=== PATIENT | female | born 1945 | race Caucasian/White ===

== ENCOUNTER 2019-08-15 14:31 | Inpatient (IN) | payer MEDICARE, BC ==
[~2019-08-15] VITALS: Ht 165.1 cm; Wt 59.0 kg
[2019-08-15 18:14] VITALS: BP 163/71; BMI 21.6
--- NOTE | 2019-08-15 18:57 | NUR ---
ADMIT TO FLOOR FROM [facility]. SOB AT REST. OXYGEN 3LNC. COUGHS WITH SWALLOWING.
[2019-08-15 19:30] VITALS: BP 131/76
--- NOTE | 2019-08-15 19:30 | NUR ---
PT IS RESTING IN BED WITH EYES OPEN. ALERT AND ORIENTED X 3. DENIES ACUTE PAIN OR DISCOMFORT AT THIS TIME. NO NEEDS VOICED. O2 IS ON @ 3LPM PER NC. NO SOB NOTED. SR'S ARE UP X 2 IN BED. CALL LIGHT AND BEDSIDE TABLE ARE WITHIN EASY REACH.
--- NOTE | 2019-08-15 22:30 | NUR ---
PT IS RESTING IN BED WITH EYES CLOSED. NO DISTRESS NOTED.
--- NOTE | 2019-08-16 01:41 | NUR ---
I have reviewed this patient and I concur with the Shift Assessment completed by the Licensed Practical Nurse today this shift.
--- NOTE | 2019-08-16 04:24 | NUR ---
PT LYING IN BED EYES CLOSED RESTING QUIETLY. RR EVEN AND UNLABORED. CL IN REACH
[2019-08-16 07:39] LABS: BASOPHILS 0 % (0-2); EOSINOPHILS 0.3 % (0-7); HEMATOCRIT 37.4 % (36.0-48.0); HEMOGLOBIN 12.1 g/dL (12-16); IMMATURE GRANULOCYTES 0.5 % (0-5); LYMPHOCYTES 35.8 % (15-50); MCH 31.8 pg (26.0-34.0); MCHC 32.4 g/dL (31.0-37.0); MCV 98.2 fL (80.0-100.0); MONOCYTES 8.9 % (2-11); NEUTROPHILS 54.5 % (40-80); PLATELET COUNT 250 10x3/uL (130-400); RBC 3.81 10x6/uL (4.00-5.40); RDW 12.3 % (11.5-14.5); WBC 6.4 10x3/uL (4.8-10.8)
[2019-08-16 07:49] LABS: ANION GAP 9.7 mmol/L (8-16); CALCIUM 8.7 mg/dL (8.5-10.1); POTASSIUM - SERUM 3.7 mmol/L (3.5-5.1)
[2019-08-16 08:00] VITALS: BP 124/80
[2019-08-16 12:31] VITALS: Ht 165.1 cm; Wt 59.0 kg
--- NOTE | 2019-08-16 12:37 | NUR ---
SITTING UP IN BED EATING LUNCH. STILL WEARING OXYGEN AND DENIES NEEDS. CALL LIGHT IN REACH
--- NOTE | 2019-08-16 16:53 | NUR ---
RESTING QUIETLY IN BED. EYES CLOSED. NO S/S DISTRES. WEARING OXYGEN. CALL LIGHT IN REACH
--- NOTE | 2019-08-16 19:52 | NUR ---
PT IS RESTING IN BED WITH EYES OPEN. ALERT AND ORIENTED X 3. DENIES ACUTE PAIN OR DISCOMFORT AT THIS TIME. NO NEEDS VOICED. O2 IS ON @3 LPM PER NC. NO SOB NOTED. SR'S ARE UP X2 IN BED. CALL LIGHT AND BEDSIDE TABLE ARE WITHIN EASY REACH.
[2019-08-16 20:10] VITALS: BP 131/82
--- NOTE | 2019-08-16 21:34 | NUR ---
PT RESTING IN BED WATCHING TV. NO NEEDS VOICED.
--- NOTE | 2019-08-17 01:14 | NUR ---
I have reviewed this patient and I concur with the Shift Assessment completed by the Licensed Practical Nurse today this shift.
--- NOTE | 2019-08-17 04:30 | NUR ---
PT RESTING IN BED WITH EYES CLOSED. NO ACUTE DISTRESS NOTED.
[2019-08-17] MEDS ORDERED: IPRAT-ALBUT 0.5-3 ML UPD (06:14)
[2019-08-17] MEDS ORDERED: COZAAR50 MG PO (06:15)
[2019-08-17] MEDS ORDERED: LOVASTATIN20 MG PO (06:16)
[2019-08-17] MEDS ORDERED: MECLIZINE HCL25 MG PO (06:17)
[2019-08-17] MEDS ORDERED: METOPROLOL TART25 MG PO (06:18)
[2019-08-17] MEDS ORDERED: ACETAMINOPHEN325 MG PO (06:19)
[2019-08-17] MEDS ORDERED: FAMOTIDINE10 MG PO (06:20)
[2019-08-17] MEDS ORDERED: DULERA 200 MCG8.8 GM INH (06:23)
[2019-08-17] MEDS ORDERED: GUAIFENESI100 MG/5 M PO (06:23)
[2019-08-17] MEDS ORDERED: PREDNISONE20 MG PO (06:24)
[2019-08-17] MEDS ORDERED: ASCORBIC ACID500 MG PO (06:25)
[2019-08-17] MEDS ORDERED: LOW DOSE ASPIRI81 M1 PO (06:26)
[2019-08-17] MEDS ORDERED: OS-CAL500 MG PO (06:28)
[2019-08-17 08:00] VITALS: BP 126/54
--- NOTE | 2019-08-17 08:00 | NUR ---
PATIENT IS ALERT/ORIENT. CALL LIGHT WITHIN REACH. WILL CONTINUE WITH PLAN OF CARE
--- NOTE | 2019-08-17 10:44 | NUR ---
PATIENT WORKING WITH PHYSICAL THERAPIST. WALKING UP AND DOWN HALLWAY WITH WHEELED WALKER.
--- NOTE | 2019-08-17 12:39 | NUR ---
PATIENT HAS SIGNED A RELEASE OF RESPONSIBILITY FOR BED/CHAIR ALARM. PATIENT CLEARED BY THERAPY TO WALK BY SELF IN ROOM.
--- NOTE | 2019-08-17 18:10 | NUR ---
I have reviewed this patient and I concur with the Shift Assessment completed by the Licensed Practical Nurse today this shift.
--- NOTE | 2019-08-17 19:15 | NUR ---
PT IS RESTING IN BED TALKING ON THE TELEPHONE. ALERT AND ORIENTED X 3. DENIES ANY PAIN OR DISCOMFORT AT THIS TIME. NO NEEDS VOICED. O2 IS ON @ 3LPM PER NC. NO SOB NOTED. VSS. SR'S ARE UP X 2 IN BED. CALL LIGHT AND BEDSIDE TABLE ARE WITHIN EASY REACH.
[2019-08-17 19:33] VITALS: BP 131/62
--- NOTE | 2019-08-17 21:15 | NUR ---
PT RESTING IN BED WATCHING TV. NO NEEDS VOICED.
--- NOTE | 2019-08-17 22:48 | NUR ---
I have reviewed this patient and I concur with the Shift Assessment completed by the Licensed Practical Nurse today this shift.
--- NOTE | 2019-08-18 01:56 | NUR ---
QUIET HOURS. PT LYING IN BED EYES CLOSED RESTING QUIETLY. RR EVEN AND UNLABORED. CL IN REACH
--- NOTE | 2019-08-18 08:00 | NUR ---
PT RESTING IN BED WITH EYES OPEN CALL LIGHT IN REACH NO PROBLEMS WILL MONITER
[2019-08-18 13:13] VITALS: BP 121/53
--- NOTE | 2019-08-18 14:43 | NUR ---
Nutrition Follow-up: Diet: Cardiac PO intake: ~46% average x last 6 meals; reports "good" appetite. States that she's "always hungry." States that she likes Chocolate Boost. Last BM: 08/17/19. WT: 130# (08/16/19) Meds noted: prednisone. Labs reviewed. Continue current diet. Will add Chocolate Boost with meals. Encouraged PO intake. RD following.
--- NOTE | 2019-08-18 15:22 | NUR ---
PT RESTING IN BED WITH EYES OPEN CALL LIGHT IN REACH WILL MONITER
[2019-08-18 19:25] VITALS: BP 135/65
--- NOTE | 2019-08-18 19:37 | NUR ---
PT IS RESTING IN BED WATCHING TV. ALERT AND ORIENTED X 3. DENIES ANY PAIN OR DISCOMFORT AT THIS TIME. NO NEEDS VOICED.VSS. O2 IS ON @ 3LPM PER NC. NO SOB NOTED. SR'S ARE UP X 2 IN BED. CALL LIGHT AND BEDSIDE TABLE ARE WITHIN EASY REACH.
--- NOTE | 2019-08-18 22:09 | NUR ---
RESTING IN BED WITH EYES CLOSED.
--- NOTE | 2019-08-19 01:38 | NUR ---
I have reviewed this patient and I concur with the Shift Assessment completed by the Licensed Practical Nurse today this shift.
--- NOTE | 2019-08-19 04:30 | NUR ---
RESTING IN BED WITH EYES CLOSED.
[2019-08-19 08:00] VITALS: BP 124/41
--- NOTE | 2019-08-19 08:00 | NUR ---
SHIFT ASSMT COMPLETED.
--- NOTE | 2019-08-19 11:32 | NUR ---
PATIENT ADMITTED TO REHAB FROM [facility]. DR. CLAY IS HER PCP. SHE HAS NO DME AT HOME. DISCHARGE PLANS ARE FOR HER TO RETURN HOME. WILL CONTINUE TO FOLLOW WITH PATIENT.
--- NOTE | 2019-08-19 11:38 | NUR ---
CARE TEAM MEETING: PATIENT DOING WELL IN THERAPY AND HER TENATIVE DISCHARGE DATE IS 08/22/19. WILL CONTINUE TO FOLLOW WITH PATIENT.
--- NOTE | 2019-08-19 12:00 | NUR ---
EATING LUNCH.OFF O2 FOR NOW.MAINTAINS 95% SAT.
--- NOTE | 2019-08-19 16:03 | NUR ---
O2 HAS BEEN OFF BUT WHILE GOING AND COMING BACK FROM BATHROOM SATS 84-85%.quickly rebounds with rest.sats come up to 92-94%
[2019-08-19 19:45] VITALS: BP 138/49
--- NOTE | 2019-08-19 19:45 | NUR ---
PATIENT RECEIVED SITTING UP IN BED. ASSESSMENT & VITAL SIGNS DONE. NO C/O PAIN OR DISTRESS. BED LOW. CALL LIGHT WITHIN REACH. WILL CONTINUE TO MONITOR.
[2019-08-19 20:38] VITALS: BP 138/49
--- NOTE | 2019-08-20 02:30 | NUR ---
PATIENT EYES CLOSED. RESPIRATIONS 18 & EVEN. BED LOW. CALL LIGHT WITHIN REACH. WILL CONTINUE TO MONITOR.
--- NOTE | 2019-08-20 03:58 | NUR ---
I have reviewed this patient and I concur with the Shift Assessment completed by the Licensed Practical Nurse today this shift.
[2019-08-20 06:25] LABS: BASOPHILS 0 % (0-2); EOSINOPHILS 0.6 % (0-7); HEMOGLOBIN 12.7 g/dL (12-16); IMMATURE GRANULOCYTES 0.2 % (0-5); LYMPHOCYTES 36.5 % (15-50); MCH 31.5 pg (26.0-34.0); MCHC 32.6 g/dL (31.0-37.0); MCV 96.8 fL (80.0-100.0); MEAN PLATELET VOLUME 9.9 fL (7.4-10.4); MONOCYTES 9.3 % (2-11); NEUTROPHILS 53.4 % (40-80); PLATELET COUNT 242 10x3/uL (130-400); RBC 4.03 10x6/uL (4.00-5.40); RDW 12.5 % (11.5-14.5); WBC 9.5 10x3/uL (4.8-10.8)
[2019-08-20 06:58] LABS: ANION GAP 9.5 mmol/L (8-16); CALCIUM 8.7 mg/dL (8.5-10.1); CARBON DIOXIDE 31.8 mmol/L (21.0-32.0); CREATININE - SERUM 0.8 mg/dL (0.6-1.3); POTASSIUM - SERUM 4.3 mmol/L (3.5-5.1)
[2019-08-20 08:00] VITALS: BP 115/45
--- NOTE | 2019-08-20 08:00 | NUR ---
SHIFT ASSMT COMPLETED.BREAKFAST GIVEN.REQUIRES O2 ON AND OFF .RIGHT NOW O2 IS OFF AND SATS ARE 96%
--- NOTE | 2019-08-20 12:00 | NUR ---
SITTING ON SIDE OF BED EATING LUNCH.
--- NOTE | 2019-08-20 20:19 | NUR ---
PATIENT RECEIVED SITTING UP IN BED. ASSESSMENT & VITAL SIGNS DONE. NO C/O PAIN OR DISTRESS. BED LOW. CALL LIGHT WITHIN REACH. WILL CONTINUE TO MONITOR.
[2019-08-20 20:21] VITALS: BP 131/44
--- NOTE | 2019-08-20 23:32 | NUR ---
I have reviewed this patient and I concur with the Shift Assessment completed by the Licensed Practical Nurse today this shift.
--- NOTE | 2019-08-21 02:40 | NUR ---
PATIENT EYES CLOSED. RESPIRATIONS 18 & EVEN. BED LOW. CALL LIGHT WITHIN REACH. WILL CONTINUE TO MONITOR.
--- NOTE | 2019-08-21 07:58 | NUR ---
PT EATING BREAKFAST ON SIDE OF BED, DENIES NEEDS. WCTM.
[2019-08-21 08:00] VITALS: BP 103/40
--- NOTE | 2019-08-21 10:20 | NUR ---
SPOKE WITH MARCEL WITH [employer] TO ARRANGE FOR TRILOGY AT HOME. WILL CONTINUE TO FOLLOW WITH PATIENT.
--- NOTE | 2019-08-21 15:01 | NUR ---
Nutrition Follow-up: Diet: Cardiac + Chocolate Boost with meals PO intake: ~78% average x last 9 meals, reports good appetite. Is drinking Boost. Last BM: 08/20/19. WT: 130# (08/16/19), no new wt. Meds noted: prednisone. Labs reviewed. Continue current nutrition regimen. RD following.
--- NOTE | 2019-08-21 16:50 | NUR ---
PT EATING DINNER, DENIES NEEDS. WCTM.
[2019-08-21 20:00] VITALS: BP 122/44
--- NOTE | 2019-08-21 20:00 | NUR ---
PATIENT RECEIVED SITTING UP IN BED. ASSESSMENT & VITAL SIGNS DONE. NO C/O PAIN OR DISTRESS. BED LOW. CALL LIGHT WITHIN REACH. WILLM CONTINUE TO MONITOR.
--- NOTE | 2019-08-22 02:17 | NUR ---
I have reviewed this patient and I concur with the Shift Assessment completed by the Licensed Practical Nurse today this shift.
--- NOTE | 2019-08-22 02:58 | NUR ---
PATIENT EYES CLOSED. BIPAP ON PATIENT TOLERATING IT WELL. BED LOW. CALL LIGHT WITHIN REACH. WILL CONTINUE TO MONITOR.
--- NOTE | 2019-08-22 07:30 | NUR ---
PT EATING BREAKFAST, DENIES NEEDS. WCTM.
[2019-08-22] MEDS ORDERED: EFFEXOR XR75 MG PO (08:33)
--- NOTE | 2019-08-22 08:34 | RHP ---
PATIENT: EDWARD MACHUCA MEDICAL RECORD: [id number] ACCOUNT: [id number] LOCATION:[id number] : 41 ADMISSION DATE: 08/15/19 REHABILITATION HISTORY AND PHYSICAL EXAMINATION POST ADMISSION PHYSICIAN EXAMINATION The patient was examined on 08/16/2019. H&P will be done today. ADMITTING DIAGNOSIS: Acute exacerbation of chronic obstructive pulmonary disease. HISTORY OF PRESENT ILLNESS: The patient is a 73-year-old female patient admitted secondary to acute exacerbation of COPD. She presented to the ED at [facility] complaining of dyspnea, increasing shortness of breath on exertion, wheezes, and decreased p.o. intake. This was on 08/10/2019. She got a history of coronary artery disease, COPD, hypertension, hyperlipidemia, and vertigo. On exam, she had decreased breath sounds bilaterally. Expiratory wheezes, cyanosis. Chest x-ray basically showed no acute pathology. The patient was admitted for acute exacerbation of COPD and itqti-zh-niorfor hypercapnic respiratory failure. She was placed on BiPAP, bronchodilators, steroids, and a 5-day course of Zithromax. On 08/12/2019, her blood cultures grew Gram-positive cocci and clusters. Given her doses of Zosyn and vancomycin. Previously, she was living alone, was independent with ADLs without aid. Currently, she is mod to max assist for ADLs and mobility. She continues to be on BiPAP. She has high flow O2 at 2-3 liters. She continues to have dyspnea on exertion and quickly desats to 86% off O2. She is not on home O2 really, but she is on Trilogy at home. She wants to regain her strength and return home. COMORBIDITIES: Include coronary artery disease, COPD, dyspnea, hearing loss, hypoxia, pacemaker placed in the past, cataracts, weakness, respiratory failure. PAST MEDICAL HISTORY: Significant for COPD, coronary artery disease, hypertension, hyperlipidemia, pacemaker placement, vertigo. PAST SURGICAL HISTORY: Includes pacemaker, tonsillectomy, hysterectomy, and cataract surgery. ALLERGIES: No known drug allergies. CURRENT MEDICATIONS: Include Mevacor 20 mg daily. She is on venlafaxine 50 mg daily. She is on Caltrate 500 mg daily, aspirin 81 mg daily, ascorbic acid 250 mg daily, prednisone 40 mg daily, Pepcid 20 mg daily, Robitussin 10 cc every 6 hours p.r.n., Lopressor 25 mg b.i.d., Cozaar 50 mg at bedtime, Brovana 15 mcg b.i.d., budesonide 0.5 mg b.i.d. She is on meclizine 25 mg t.i.d. p.r.n. dizziness. She is on DuoNeb updrafts p.r.n., polyethylene glycol 17 grams in 8 ounces of water daily, acetaminophen 650 q.6 hours p.r.n. HABITS: No current alcohol or tobacco use. FAMILY HISTORY: Noncontributory. SOCIAL HISTORY: The patient hopes to return back home and get back to her prior level of functioning. REVIEW OF SYSTEMS: HISTORY AND PHYSICAL [id number] EDWARD MACHUCA GENERAL: Does complain of some weakness and fatigue. HEENT: Does complain of some cold, cough, or congestion. CARDIOVASCULAR: Denies any chest pain. LUNGS: Does complain of shortness of breath at times. PHYSICAL EXAMINATION: VITAL SIGNS: Stable. She is afebrile. GENERAL: A well-developed female, in no acute distress, alert upon exam. HEENT: Normocephalic and atraumatic. Mucosa moist. NECK: Supple. No lymphadenopathy. LUNGS: Clear in upper chase. HEART: Regular rate and rhythm. No murmurs, rubs or gallops. ABDOMEN: Soft, benign, and nondistended. Positive bowel sounds times 4. EXTREMITIES: No clubbing, cyanosis or edema. NEUROLOGIC: She is mainly intact. LABORATORY DATA: White count 6.4, H&H 12 and 37, and platelet count is noted to be 250. Her sodium is 141, potassium 3.7, BUN and creatinine of 26 and 1.0, and blood sugar was noted to be normal at 80. ASSESSMENT: This is a 73-year-old female patient admitted to rehab with a working diagnosis of myopathy secondary acute exacerbation of chronic obstructive pulmonary disease. The patient has potential to make improvement. We instituted the following multidisciplinary therapies including, but not limited to physical, occupational, respiratory, speech, nutritional services, prosthetics and orthotics. Given her complex medical conditions and risks for more complications, rehabilitation services cannot be provided at a low level of care such as senior care facility. PLAN: 1. Admit to [facility] rehab for an intensive inpatient therapy to include the following disciplines: A. Physical therapy to improve gait, all transfer skills and bed mobility to a modified independent level. B. Occupational therapy to improve activities of daily living. C. Case management to assist with discharge planning and placement options. D. Nutrition to assist with nutritional needs. E. Rehabilitation nursing to assist in monitoring the patient's underlying medical conditions and to assist with any type of bowel or bladder management. 2. The patient's current medication and medical care will be continued. 3. The patient will be placed on standard fall precautions. 4. The patient's estimated length of stay is approximately 7-10 days. 5. We will discuss this during care team staff meeting this week, which should be in the a.m. TRANSINT:[id number] Voice Confirmation ID: [id number] DOCUMENT ID: [id number] SHAYY notes whether there has been none or any medical/functional change since admission: - No change since prescreen. SHAYY attests patient continues to be appropriate for IRF: - Continues to be appropriate. HISTORY AND PHYSICAL [id number] EDWARD MACHUCA JOHN SCOTT MD at 0834 CC: [id number] DICTATION DATE: 08/18/19906 PRINCIPAL ACCOUNTS CLERK: 08/18/19 1107 ADM IN [place] [id number] [place] [address]
--- NOTE | 2019-08-22 09:59 | NUR ---
PATIENT DISCHARGING HOME TODAY WITH FAMILY. [facility] WILL PROVIDE THERAPY AT HOME. [employer] HAS DELIVERED A TRILOGY TO PATIENT FOR HOME USE. DR. CLAY 09/02/19 @ 9:30. PATIENT WILL CALL HER PULMONOLGIST FOR AN APPOINTMENT. PATIENT CHOICE FORM FOR HOME HEALTH AND COMPARE DATA REVIEWED WITH PATIENT. SHE VOICED UNDERSTANDING. [facility] FORM SIGNED COPY GIVEN TO PATIENT AND FILED IN CHART. DISCHARGE INSTRUCTIONS FAXED TO PCP, HOME HEALTH AND REVIEWED WITH PATIENT.
--- NOTE | 2019-08-22 10:58 | NUR ---
PT DISCHARGE INSTRUCTIONS REV'D AND PT STATES UNDERSTANDING. MEDICATIONS CALLED IN TO [facility].
--- NOTE | 2019-08-22 11:34 | NUR ---
PT ESCORTED OUT BY HOSPITAL STAFF VIA WHEELCHAIR. PT DISCHARGING HOME WITH FAMILY AT THIS TIME.
== END 2019-08-22 11:35 | disposition home health service (06) | DRG 91 ==
LOC: D.REHAB 14:31
PROVIDERS: ADMIT Emergency Medicine; ATTEND Emergency Medicine
DX: G72.89 Other specified myopathies (principal); J96.22 Acute and chronic respiratory failure with hypercapnia; J96.21 Acute and chronic respiratory failure with hypoxia; J44.1 Chronic obstructive pulmonary disease with (acute) exacerbation; I25.10 Atherosclerotic heart disease of native coronary artery without angina pectoris; R06.00 Dyspnea, unspecified; H91.90 Unspecified hearing loss, unspecified ear; R53.1 Weakness; Z95.0 Presence of cardiac pacemaker; E78.5 Hyperlipidemia, unspecified; R91.1 Solitary pulmonary nodule; R10.13 Epigastric pain; R06.2 Wheezing; R23.0 Cyanosis